=== PATIENT | male | born 1970 | race Caucasian/White ===

== ENCOUNTER → 2022-03-22 | Outpatient (CLI) | payer OTHER ==
--- NOTE | 2022-03-22 11:50 | US ---
EXAMINATION TYPE: US carotid duplex BILAT DATE OF EXAM: 03/22/2022 COMPARISON: NONE CLINICAL HISTORY: R42 DIZZINESS AND GIDDINESS. TECHNIQUE: Carotid duplex ultrasound examination. Indirect Doppler criteria was utilized. FINDINGS: EXAM MEASUREMENTS: RIGHT: Peak Systolic Velocity (PSV) cm/sec ----- Right CCA: 82.0 ----- Right ICA: 70.4 ----- Right ECA: 144.7 ICA/CCA ratio: 0.9 RIGHT: End Diastole cm/sec ----- Right CCA: 28.1 ----- Right ICA: 33.0 ----- Right ECA: 39.7 LEFT: Peak Systolic Velocity (PSV) cm/sec ----- Left CCA: 90.8 ----- Left ICA: 97.8 ----- Left ECA: 118.5 ICA/CCA ratio: 1.1 LEFT: End Diastole cm/sec ----- Left CCA: 27.0 ----- Left ICA: 48.7 ----- Left ECA: 32.3 VERTEBRALS (direction of flow): Right Vertebral: Antegrade Left Vertebral: Antegrade Rhythm: Normal Intimal thickening and some atheromatous plaquing is present. IMPRESSION: 1. No significant flow-limiting stenosis. 2. There may be some moderate narrowing of the right external carotid artery. Criteria for Assigning % of Stenosis / Diameter reduction (Estimation based on the indirect measurements of the internal carotid artery velocities (ICA PSV). 1. Normal (no stenosis)=ICA PSV < 125 cm/s: ratio < 2.0: ICA EDV<40 cm/s. 2. Less than 50% stenosis=ICA PSV < 125 cm/s: ratio < 2.0: ICA EDV<40 cm/s. 3. 50 to 69% stenosis=ICA PSV of 125 to 230 cm/s: ration 2.0 ? 4.0: ICA EDV 40-100 cm/s. 4. Greater than 70% stenosis to near occlusion= ICA PSV > 230 cm/s: ratio > 4.0: ICA EDV > 100 cm/s. 5. Near occlusion= ICA PSV velocities may be low or undetectable: variable ratio and ICA EDV. 6. Total occlusion=unable to detect flow.
== END | disposition home or self-care (01) ==
LOC: RADUSWWP 11:06
DX: R42 Dizziness and giddiness (principal)
CPT/HCPCS: 93880

== ENCOUNTER 2022-05-08 11:06 | Observation (INO) | payer OTHER ==
[2022-05-08] MEDS ORDERED: ASPIRIN 81 MG PO STA (11:39)
--- NOTE | 2022-05-08 12:01 | ED ---
Chest Pain [facility] - General Chief Complaint: Chest Pain Stated Complaint: chest pain Time Seen by Provider: 05/08/22 11:22 Source: patient, RN notes reviewed Mode of arrival: wheelchair Limitations: no limitations - History of Present Illness Initial Comments: 51-year-old male presents emergency Department chief complaint of chest pain. Patient states that the pain started a couple days ago but has worsened sharp left-sided chest pain. Patient does admit that he has hyperlipidemia denies any history of hypertension. Patient states that he did some diaphoretic episodes mild shortness of breath. Patient denies abdominal pain no back pain no other complaints. - Related Data Allergies Allergy/AdvReac Type Severity Reaction Status Date / Time No Known Allergies Allergy Verified 05/08/22 13:23 Review of Systems ROS Statement: Those systems with pertinent positive or pertinent negative responses have been documented in the HPI. ROS Other: All systems not noted in ROS Statement are negative. Past Medical History Past Medical History: Cancer, Hyperlipidemia, Thyroid Disorder History of Any Multi-Drug Resistant Organisms: None Reported Past Surgical History: No Surgical Hx Reported Past Psychological History: Anxiety, PTSD Smoking Status: Never smoker Past Alcohol Use History: Daily, Heavy Past Drug Use History: Marijuana General Exam General appearance: alert, in no apparent distress Head exam: Present: atraumatic, normocephalic, normal inspection Eye exam: Present: normal appearance, PERRL, EOMI. Absent: scleral icterus, conjunctival injection, periorbital swelling ENT exam: Present: normal exam, normal oropharynx, mucous membranes moist Neck exam: Present: normal inspection, full ROM. Absent: tenderness, meningismus, lymphadenopathy Respiratory exam: Present: normal lung sounds bilaterally. Absent: respiratory distress, wheezes, rales, rhonchi, stridor Cardiovascular Exam: Present: regular rate, normal rhythm, normal heart sounds. Absent: systolic murmur, diastolic murmur, rubs, gallop, clicks GI/Abdominal exam: Present: soft, normal bowel sounds. Absent: distended, tenderness, guarding, rebound, rigid Neurological exam: Present: alert Skin exam: Present: warm, dry, intact, normal color. Absent: rash Course Vital Signs 05/08/22 11:12 Temperature 98.2 F Pulse Rate 73 Respiratory 18 Rate Blood Pressure 144/91 O2 Sat by Pulse 98 Oximetry Chest Pain [facility] 51-year-old male presented from for left-sided chest pain. Initial workup including metastases EKG and chest x-ray did not reveal any acute findings. Patient does have multiple risk factors admitted for cardiac rule out and cardiology evaluation and echocardiogram. Disposition Clinical Impression: Chest pain Disposition: ADMITTED IP TO THIS HOSP Condition: Stable Referrals: [facility],Clinic [Primary Care Provider] - 1-2 days Time of Disposition: 13:30
[2022-05-08 12:09] LABS: Basophils # (A) 0.1 k/uL (0-0.2); Basophils % (A) 1 %; Eosinophils # (A) 0.2 k/uL (0-0.7); Eosinophils % (A) 3 %; HCT 44.2 % (39.0-53.0); HGB 14.5 gm/dL (13.0-17.5); Lymphocytes # (A) 1.1 k/uL (1.0-4.8); Lymphocytes % (A) 15 %; MCHC 32.9 g/dL (31.0-37.0); MCV 91.1 fL (80.0-100.0); Mean Platelet Volume 9.4; Monocytes # (A) 0.5 k/uL (0-1.0); Monocytes % (A) 6 %; Neutrophils # (A) 5.6 k/uL (1.3-7.7); Neutrophils % (A) 74 %; Platelet Count 137 k/uL (150-450); RBC 4.84 m/uL (4.30-5.90); RDW 12.8 % (11.5-15.5); WBC 7.6 k/uL (3.8-10.6)
[2022-05-08 12:17] LABS: ALT 48 U/L (4-49); AST 36 U/L (17-59); African American GFR (CKD) >90 (>60 ml/min/1.73 sqM); Albumin 4.6 g/dL (3.5-5.0); Alkaline Phosphatase 90 U/L (38-126); Anion Gap 14 mmol/L; Blood Urea Nitrogen 20 mg/dL (9-20); Calcium 9.7 mg/dL (8.4-10.2); Carbon Dioxide 20 mmol/L (22-30); Chloride 103 mmol/L (98-107); Glucose 121 mg/dL (74-99); Lipase 211 U/L (23-300); Magnesium 2.3 mg/dL (1.6-2.3); Non-African American GFR(CKD) >90 (>60 ml/min/1.73 sqM); Potassium 4.2 mmol/L (3.5-5.1); Sodium 137 mmol/L (137-145); Total Bilirubin 0.6 mg/dL (0.2-1.3); Total Protein 7.5 g/dL (6.3-8.2)
[2022-05-08 12:27] LABS: Partial Thromboplastin Time 25.4 sec (22.0-30.0); Prothrombin Time 10.6 sec (9.0-12.0)
--- NOTE | 2022-05-08 12:32 | XR ---
EXAMINATION TYPE: XR chest 2V DATE OF EXAM: 05/08/2022 COMPARISON: None HISTORY: 51-year-old male with chest pain TECHNIQUE: PA and lateral views FINDINGS: Minimal central peribronchial cuffing. Some radiopaque atelectasis in the lower lungs. Prominent epic ardial fat pad at the apex of the heart. No consolidation or pleural effusion. Heart normal size. IMPRESSION: Mild peribronchial cuffing could reflect bronchitis or asthma. Otherwise, no acute process seen.
[2022-05-08] MEDS ORDERED: NITROGLYCERIN SL TABS 0.4 MG TAB SUBLINGUAL PRN (13:30)
--- NOTE | 2022-05-08 17:59 | P.HPIM ---
History of Present Illness H&P Date: 05/08/22 History of Presenting Illness: Patient is a very pleasant 51-year-old male with a past medical history of hyperlipidemia, hypothyroidism, PTSD with anxiety and history of panic attacks, alcohol use, and marijuana use. Patient presented to the emergency department with a chief complaint of chest pain. Patient reports this began a couple days ago and is felt as a funny feeling to the left side of his chest accompanied by palpitations, nausea, shortness of breath, and diaphoresis. Patient states initially he thought maybe he was just having panic attack but then reports he started getting sharp sensations/pains in the left side of his chest that seemed to radiate towards his left shoulder which is completely atypical from his previous panic attacks. Patient stated this is when he became concerned and came to the emergency department for evaluation. He denies having any recent illnesses or exposure to known ill contacts, fevers, chills, headache, cough or congestion, abdominal pain, vomiting, or experiencing any numbness/tingling/weakness in his extremities. He underwent full evaluation in the emergency department CBC unremarkable with the exception of mild t hrombocytopenia with platelet count of 137, coags normal findings, and CMP also unremarkable. Troponin negative at less than 0.012. EKG revealing normal sinus rhythm at 66 bpm with no noted T-wave or ST abnormalities showing no signs of acute ischemia. Chest x-ray revealed mild peribronchial cuffing possibly secondary to bronchitis or asthma otherwise negative for acute cardiopulmonary process. Review of systems: Pertinent positives and negatives as discussed in HPI, a complete review of sy stems was performed and all other systems are negative. Physical exam: Vital signs reviewed and stable. General: Nontoxic, no distress and appears stated age. Derm: Skin warm and dry, normal coloration for ethnicity. Head: Atraumatic, normocephalic and symmetric. Eyes: EOMs intact, no lid lag, and anicteric sclera Mouth: no lip lesions, mucus membranes moist Cardiovascular: regular rate and rhythm with normal S1S2, no murmur, positive posterior tibial pulses bilaterally, and cap refill < 2 seconds. Lungs: Respirations even, regular, and unlabored on room air. Lungs CTA bilaterally, no rhonchi, no rales, no wheezing, and no accessory muscle usage. Abdominal: soft, nontender to palpation, no guarding, no appreciable organomegaly Ext: ROM intact. No gross muscle atrophy, no edema, no contractures Neuro: Speech clear, face symmetrical and CN II-XII grossly intact with no noted focal neuro deficits Psych: Alert and oriented to person, place, time, and situation. Appropriate and pleasant affect. Assessment and Plan of Care: Chest pain, rule out acute coronary event -Cardiology consult, appreciate further recommendations -Telemetry monitoring -Trend troponins -Cardiac diet, NPO at midnight -Aspirin and atorvastatin -Lipid profile with a.m. labs. -Echocardiogram Hypothyroidism -Continue daily medication regimen with levothyroxine. Hyperlipidemia -Continue daily medication regimen with atorvastatin. -Lipid profile with a.m. labs. The patient is admitted with an anticipated less than 2 midnight stay for evaluation of chest pain. CODE STATUS: Full code DVT prophylaxis: Heparin Discussed with: Patient, patient's , and RN Anticipated discharge date: 1-[address]: Home A total of 43 minutes was spent on the care of this complex patient more than 50% of the time was spent in counseling and care coordination. Past Medical History Past Medical History: Cancer, Hyperlipidemia, Thyroid Disorder History of Any Multi-Drug Resistant Organisms: None Reported Past Surgical History: No Surgical Hx Reported Past Psychological History: Anxiety, PTSD Smoking Status: Never smoker Past Alcohol Use History: Daily, Heavy Past Drug Use History: Marijuana Medications and Allergies Home Medications Medication Instructions Recorded Confirmed Type Alpha Brain 2 cap PO DAILY 05/08/22 05/08/22 History Atorvastatin [Lipitor] 20 mg PO HS 05/08/22 05/08/22 History Cyanocobalamin (Vitamin B-12) 1,000 mcg PO DAILY 05/08/22 05/08/22 History [Vitamin B-12] Fluticasone Nasal [place] [Flonase 2 spr EA NOSTRIL DAILY 05/08/22 05/08/22 History Nasal [place]] LORazepam [Ativan] 0.5 mg PO HS 05/08/22 05/08/22 History Levothyroxine Sodium [Synthroid] 125 mcg PO AC-BRKFST 05/08/22 05/08/22 History Magnesium Oxide [Mag-Ox] 400 mg PO HS 05/08/22 05/08/22 History Potassium Gluconate [Potassium 99 mg PO DAILY 05/08/22 05/08/22 History Gluconate ER] Allergies Allergy/AdvReac Type Severity Reaction Status Date / Time No Known Allergies Allergy Verified 05/08/22 13:23 Physical Exam Vitals: Vital Signs Temp Pulse Resp BP Pulse Ox 05/08/22 11:12 98.2 F 73 18 144/91 98 Intake and Output 05/07/22 05/08/22 05/08/22 22:59 06:59 14:59 Other: Weight 110.223 kg Results CBC & Chem 7: 05/08/22 11:51 05/08/22 11:51 Labs: Abnormal Lab Results - Last 24 Hours (Table) 05/08/22 05/08/22 Range/Units 11:51 11:51 Plt Count 137 L (150-450) k/uL Carbon Dioxide 20 L (22-30) mmol/L Glucose 121 H (74-99) mg/dL
[2022-05-08] MEDS ORDERED: ATORVASTATIN 20 MG TAB PO SCH (21:00)
[2022-05-08] MEDS ORDERED: MAGNESIUM OXIDE 400 MG TAB PO SCH (21:00)
[2022-05-08] MEDS ORDERED: LORazepam 0.5 MG TAB PO SCH (21:00)
[2022-05-08] MEDS: HEPARIN SODIUM,PORCINE/PF 5,000 UNIT/0.5 ML SYRINGE SQ SCH (23:44)
[2022-05-09] MEDS ORDERED: LEVOTHYROXINE 125 MCG TAB PO SCH (07:30)
[2022-05-09] MEDS ORDERED: POTASSIUM CHLORIDE ER 10 MEQ TAB.ER.PRT PO SCH (09:00)
[2022-05-09] MEDS ORDERED: ASPIRIN 325 MG TAB PO SCH (09:00)
[2022-05-09] MEDS ORDERED: CYANOCOBALAMIN 500 MCG TAB PO SCH (09:00)
[2022-05-09] MEDS ORDERED: ALPHA BRAIN PO SCH (09:00)
[2022-05-09] MEDS ORDERED: FLUTICASONE 50MCG/SPRAY NASAL 16GM EA NOSTRIL SCH (09:00)
[2022-05-09] MEDS ORDERED: ASPIRIN 81 MG PO SCH (09:00)
[2022-05-09 10:01] LABS: Chol/HDL Ratio 5.52 Ratio; LDL Cholesterol,Calculated 94.7 mg/dL (0.0-131.0)
--- NOTE | 2022-05-09 10:05 | P.CRDCN ---
History of Present Illness History of present illness: HISTORY OF PRESENT ILLNESS: This is a 51-year-old male with a past medical history significant for hyperlipidemia and anxiety. 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 We have been asked to see the patient in consultation for chest pain. Patient examined at the bedside. Patient states he began having chest pain on Sunday. He states the pain was a sharp pain in the middle of his chest into his left shoulder. He reports feeling short of breath and having some shallow breathing. He reports palpitations. He states the pain would last for a few minutes and then go away. He states the pain was nonexertional. He thought at first it was anxiety but the pain persisted so he decided to come to the emergency room for further evaluation. He reports a family history of heart disease in his dad and his grandmother. The patient is a nonsmoker. * EKG reveals sinus mechanism with no signs of acute ischemia * Chest xray mild peribronchial cuffing could reflect bronchitis or asthma. Otherwise no acute process seen. * Laboratory data: WBC 7.6. Hemoglobin 14.5. Platelet count 137. Sodium 137. Potassium 4.2. BUN 20. Creatinine 0.88. Magnesium 2.3. Troponin negative 3. * Current home cardiac medications include Lipitor 20 mg at night REVIEW OF SYSTEMS: At the time of my exam: CONSTITUTIONAL: Denies fever or chills. HEENT: Denies blurred vision, vision changes, or eye pain. Denies hemoptysis CARDIOVASCULAR: Denies chest pain. Denies orthopnea. Denies PND. Denies palpitations RESPIRATORY: Denies shortness of breath. GASTROINTESTINAL: Denies abdominal pain. Denies nausea or vomiting. HEMATOLOGIC: Denies bleeding disorders. GENITOURINARY: Denies any blood in urine. SKIN: Denies pruitis. Denies rash. PHYSICAL EXAM: VITAL SIGNS: Reviewed. GENERAL: Well-developed in no acute distress. HEENT: Head is normocephalic. Pupils are equal, round. Sclerae anicteric. Mucous membranes of the mouth are moist. Neck supple. No JVD or thyromegaly LUNGS: Respirations even and unlabored. Lungs essentially clear to auscultation bilaterally. HEART: Regular rate and rhythm. S1 and S2 heard. ABDOMEN: Soft. Nondistended. Nontender. EXTREMITIES: Normal range of motion. No clubbing or cyanosis. Peripheral pulses intact. No lower extremity edema NEUROLOGIC: Awake and alert. Oriented x 3. ASSESSMENT: Chest pain, troponins negative 3 Hyperlipidemia Anxiety PLAN: An acute coronary and has been ruled out Resume home cardiac medications Obtain 2-D echo to assess cardiac structure and function Patient to undergo stress testing today. If negative, the patient may be discharged home from a cardiac standpoint Further recommendations pending patient's course Nurse practitioner note has been reviewed by physician. Signing provider agrees with the documented findings, assessment, and plan of care. Past Medical History Past Medical History: Cancer, Hyperlipidemia, Thyroid Disorder History of Any Multi-Drug Resistant Organisms: None Reported Past Surgical History: No Surgical Hx Reported Past Psychological History: Anxiety, PTSD Smoking Status: Never smoker Past Alcohol Use History: Daily, Heavy Past Drug Use History: Marijuana Medications and Allergies Home Medications Medication Instructions Recorded Confirmed Type Alpha Brain 2 cap PO DAILY 05/08/22 05/08/22 History Atorvastatin [Lipitor] 20 mg PO HS 05/08/22 05/08/22 History Cyanocobalamin (Vitamin B-12) 1,000 mcg PO DAILY 05/08/22 05/08/22 History [Vitamin B-12] Fluticasone Nasal [place] [Flonase 2 spr EA NOSTRIL DAILY 05/08/22 05/08/22 History Nasal [place]] LORazepam [Ativan] 0.5 mg PO HS 05/08/22 05/08/22 History Levothyroxine Sodium [Synthroid] 125 mcg PO AC-BRKFST 05/08/22 05/08/22 History Magnesium Oxide [Mag-Ox] 400 mg PO HS 05/08/22 05/08/22 History Potassium Gluconate [Potassium 99 mg PO DAILY 05/08/22 05/08/22 History Gluconate ER] Allergies Allergy/AdvReac Type Severity Reaction Status Date / Time No Known Allergies Allergy Verified 05/08/22 13:23 Physical Exam Vitals: Vital Signs Temp Pulse Pulse Resp BP BP BP 05/09/22 07:00 97.8 F 54 L 15 106/64 05/09/22 03:53 97.7 F 56 L 17 119/78 05/09/22 01:25 69 18 05/08/22 20:00 74 18 05/08/22 19:34 97.9 F 74 18 124/83 05/08/22 17:18 98.2 F 76 19 112/67 05/08/22 16:00 81 18 136/71 05/08/22 11:12 98.2 F 73 18 144/91 Pulse Ox 05/09/22 07:00 96 05/09/22 03:53 99 05/09/22 01:25 05/08/22 20:00 05/08/22 19:34 97 05/08/22 17:18 97 05/08/22 16:00 99 05/08/22 11:12 98 Intake and Output 05/08/22 05/09/22 05/09/22 22:59 06:59 14:59 Intake Total 500 Balance 500 Intake: Oral 500 Other: Voiding Method Toilet Toilet # Voids 1 Weight 110.223 kg Results 05/08/22 11:51 05/08/22 11:51 Cardiac Enzymes 05/08/22 05/08/22 05/08/22 Range/Units 11:51 11:51 14:36 AST 36 (17-59) U/L Troponin I <0.012 <0.012 (0.000-0.034) ng/mL 05/08/22 Range/Units 17:45 AST (17-59) U/L Troponin I <0.012 (0.000-0.034) ng/mL Coagulation 05/08/22 Range/Units 11:51 PT 10.6 (9.0-12.0) sec APTT 25.4 (22.0-30.0) sec CBC 05/08/22 Range/Units 11:51 WBC 7.6 (3.8-10.6) k/uL RBC 4.84 (4.30-5.90) m/uL Hgb 14.5 (13.0-17.5) gm/dL Hct 44.2 (39.0-53.0) % Plt Count 137 L (150-450) k/uL Comprehensive Metabolic Panel 05/08/22 Range/Units 11:51 Sodium 137 (137-145) mmol/L Potassium 4.2 (3.5-5.1) mmol/L Chloride 103 (98-107) mmol/L Carbon Dioxide 20 L (22-30) mmol/L BUN 20 (9-20) mg/dL Creatinine 0.88 (0.66-1.25) mg/dL Glucose 121 H (74-99) mg/dL Calcium 9.7 (8.4-10.2) mg/dL AST 36 (17-59) U/L ALT 48 (4-49) U/L Alkaline Phosphatase 90 (38-126) U/L Total Protein 7.5 (6.3-8.2) g/dL Albumin 4.6 (3.5-5.0) g/dL Current Medications Generic Name Dose Route Start Last Admin Trade Name Freq PRN Reason Stop Dose Admin Aspirin 325 mg 05/09/22 09:00 Aspirin 325 Mg Tab PO DAILY [facility] Atorvastatin Calcium 20 mg 05/08/22 21:00 05/08/22 21:46 Atorvastatin 20 Mg Tab PO 20 mg HS KAT Administration Cyanocobalamin 1,000 mcg 05/09/22 09:00 Cyanocobalamin 500 Mcg Tab PO DAILY KAT Fluticasone Propionate 2 spray 05/09/22 09:00 Fluticasone 50mcg/[place] Nasal 16gm EA NOSTRIL DAILY KAT Heparin Sodium (Porcine) 5,000 unit 05/09/22 00:00 05/08/22 23:44 Heparin Sodium,Porcine/Pf 5,000 Unit/0.5 Ml Syringe SQ 5,000 unit Q8HR KAT Administration Levothyroxine Sodium 125 mcg 05/09/22 07:30 Levothyroxine 125 Mcg Tab PO AC-BRKFST KAT Lorazepam 0.5 mg 05/08/22 21:00 05/08/22 21:46 Lorazepam 0.5 Mg Tab PO 0.5 mg HS KAT Administration Magnesium Oxide 400 mg 05/08/22 21:00 05/08/22 21:46 Magnesium Oxide 400 Mg Tab PO 400 mg HS KAT Administration Nitroglycerin 0.4 mg 05/08/22 13:30 Nitroglycerin Sl Tabs 0.4 Mg Tab SUBLINGUAL Q5M PRN Chest Pain Potassium Chloride 10 meq 05/09/22 09:00 Potassium Chloride Er 10 Meq Tab.Er.Prt PO DAILY KAT Intake and Output 05/08/22 05/09/22 05/09/22 22:59 06:59 14:59 Intake Total 500 Balance 500 Intake: Oral 500 Other: Voiding Method Toilet Toilet # Voids 1 Weight 110.223 kg 05/08/22 11:51 05/08/22 11:51
[2022-05-09] MEDS: HEPARIN SODIUM,PORCINE/PF 5,000 UNIT/0.5 ML SYRINGE SQ SCH (10:09)
--- NOTE | 2022-05-09 14:32 | P.DS ---
Providers Date of admission: 05/08/22 13:30 Expected date of discharge: 05/09/22 Attending physician: Teddy Krishnamurthy MD Primary care physician: [facility] Course: Discharge Diagnosis: Chest pain, acute coronary event ruled out. Hypothyroidism. Continue daily medication regimen with levothyroxine. Hyperlipidemia. Continue daily medication regimen with atorvastatin. Patient was also started on fenofibrate in addition to daily atorvastatin secondary to elevated triglyceride levels of 333. Hospital Course: Patient is a very pleasant 51-year-old male with a past medical history of hyperlipidemia, hypothyroidism, PTSD with anxiety and history of panic attacks, alcohol use, and marijuana use. Patient presented to the emergency department with a chief complaint of chest pain. Patient reports this began a couple days ago and is felt as a funny feeling to the left side of his chest accompanied by palpitations, nausea, shortness of breath, and diaphoresis. Patient states initially he thought maybe he was just having panic attack but then reports he started getting sharp sensations/pains in the left side of his chest that seemed to radiate towards his left shoulder which is completely atypical from his previous panic attacks. Patient stated this is when he became concerned and came to the emergency department for evaluation. He denies having any recent illnesses or exposure to known ill contacts, fevers, chills, headache, cough or congestion, abdominal pain, vomiting, or experiencing any numbness/tingling/weakness in his extremities. He underwent full evaluation in the emergency department CBC unremarkable with the exception of mild thrombocytopenia with platelet count of 137, coags normal findings, and CMP also unremarkable. Troponin negative at less than 0.012. EKG revealing normal sinus rhythm at 66 bpm with no noted T-wave or ST abnormalities showing no signs of acute ischemia. Chest x-ray revealed mild peribronchial cuffing possibly secondary to bronchitis or asthma otherwise negative for acute cardiopulmonary process. Patient was admitted under our services with consultation to cardiology. patient reported resolution of previously noted chest pain.troponins were trended overnight all negative at less than 0.0123 draws. patient was evaluated by cardiology and underwent an echocardiogram and echo stress test. Per cardiology these findings were negative and normal findings and patient was cleared from cardiac perspective at this time and recommended to follow-up outpatient in our office in 1 week to discuss results. Patient is medically stable for discharge home at this time. Discussed discharge with patient and patient's and patient to follow up outpatient with PCP in 1-2 days and with filler blender in 1 week. Patient was also started on fenofibrate in addition to daily atorvastatin secondary to elevated triglyceride levels of 333. Physical exam: Vital signs reviewed and stable. General: Nontoxic, no distress and appears stated age. Derm: Skin warm and dry, normal coloration for ethnicity. Head: Atraumatic, normocephalic and symmetric. Eyes: EOMs intact, no lid lag, and anicteric sclera Mouth: no lip lesions, mucus membranes moist Cardiovascular: regular rate and rhythm with normal S1S2, no murmur, positive posterior tibial pulses bilaterally, and cap refill < 2 seconds. Lungs: Respirations even, regular, and unlabored on room air. Lungs CTA bilaterally, no rhonchi, no rales, no wheezing, and no accessory muscle usage. Abdominal: soft, nontender to palpation, no guarding, no appreciable organomegaly Ext: ROM intact. No gross muscle atrophy, no edema, no contractures Neuro: Speech clear, face symmetrical and CN II-XII grossly intact with no noted focal neuro deficits Psych: Alert and oriented to person, place, time, and situation. Appropriate and pleasant affect. A total of 31 minutes of time were spent preparing this complex discharge summary. Pt was discharged on 05/09/22 at 2:30 PM. I reviewed the documentation as provided by the ROSEMARIE above, who is the original author of this note. I agree with the documented assessment and plan, with the following changes: none Patient Condition at Discharge: Stable Plan - Discharge Summary New Discharge Prescriptions: New Fenofibrate 150 mg PO DAILY 30 Days #30 capsule Continue Fluticasone Nasal [place] [Flonase Nasal [place]] 2 spr EA NOSTRIL DAILY Levothyroxine Sodium [Synthroid] 125 mcg PO AC-BRKFST Potassium Gluconate [Potassium Gluconate ER] 99 mg PO DAILY Magnesium Oxide [Mag-Ox] 400 mg PO HS Cyanocobalamin (Vitamin B-12) [Vitamin B-12] 1,000 mcg PO DAILY Alpha Brain 2 cap PO DAILY Atorvastatin [Lipitor] 20 mg PO HS LORazepam [Ativan] 0.5 mg PO HS Discharge Medication List Alpha Brain 2 cap PO DAILY 05/08/22 [History] Atorvastatin [Lipitor] 20 mg PO HS 05/08/22 [History] Cyanocobalamin (Vitamin B-12) [Vitamin B-12] 1,000 mcg PO DAILY 05/08/22 [History] Fluticasone Nasal [place] [Flonase Nasal [place]] 2 spr EA NOSTRIL DAILY 05/08/22 [History] LORazepam [Ativan] 0.5 mg PO HS 05/08/22 [History] Levothyroxine Sodium [Synthroid] 125 mcg PO AC-BRKFST 05/08/22 [History] Magnesium Oxide [Mag-Ox] 400 mg PO HS 05/08/22 [History] Potassium Gluconate [Potassium Gluconate ER] 99 mg PO DAILY 05/08/22 [History] Fenofibrate 150 mg PO DAILY 30 Days #30 capsule 05/09/22 [Rx] Follow up Appointment(s)/Referral(s): Cory Salguero MD [STAFF PHYSICIAN] - 1 Week [facility]inic [Primary Care Provider] - 1-2 days Patient Instructions/Handouts: Chest Pain (DC), Hyperlipidemia (DC) Activity/Diet/Wound Care/Special Instructions: Activity: As tolerated. Take breaks as needed. Diet: Heart healthy and carb consistent diet. Avoid salts, or foods with hidden salts such as canned or boxed foods and frozen dinners. Extra salt makes your heart work harder and traps the fluid in your body for longer. Special Instructions: Take all of your medications as directed and remember to keep all of your doctor's appointments and follow-up as needed. Thank you for allowing us to participate in your care, it is always great to have the opportunity to provide care to a and it was truly a pleasure having you for our patient!!! Discharge Disposition: HOME SELF-CARE
[2022-05-09 15:04] VITALS: BP 110/72; PULSE 69; RESP 18; TEMP 97.8
--- NOTE | 2022-05-10 07:44 | CA ---
Transthoracic Echo Report Name: Oracio Han Age: 51 Gender: M : 1970 Exam Date: 05/09/2022 08:02 Exam Location: [facility] Ht (in): 62 Wt (lb): 243 Ordering Physician: Renny Garner Attending/Referring Phys: [id number], Patsy Alteration Worker Deb Paula, CHRIS Procedure CPT: Indications: Chest Pain Cardiac Hx: Technical Quality: Contrast 1: Total Dose (mL): Contrast 2: Total Dose (mL): MEASUREMENTS (Male / Female) Normal Values 2D ECHO LV Diastolic Diameter PLAX 4.9 cm 4.2 - 5.9 / 3.9 - 5.3 cm LV Systolic Diameter PLAX 4.1 cm IVS Diastolic Thickness 1.3 cm 0.6 - 1.0 / 0.6 - 0.9 cm LVPW Diastolic Thickness 1.5 cm 0.6 - 1.0 / 0.6 - 0.9 cm LV Relative Wall Thickness 0.6 LA Systolic Diameter LX 3.7 cm 3.0 - 4.0 / 2.7 - 3.8 cm LA Volume 58.8 cm??? 18 - 58 / 22 - 52 cm??? M-MODE Aortic Root Diameter MM 3.3 cm LA Systolic Diameter MM 3.6 cm LA Ao Ratio MM 1.1 MV E Point Septal Separation 1.2 cm AV Cusp Separation MM 1.9 cm DOPPLER MV Area PHT 3.1 cm??? Mitral E Point Velocity 72.2 cm/s Mitral A Point Velocity 56.2 cm/s Mitral E to A Ratio 1.3 MV Deceleration Time 244.5 ms MV E' Velocity 6.4 cm/s Mitral E to MV E' Ratio 11.4 FINDINGS Left Ventricle Normal left ventricular size, wall thickness, systolic function with no obvious regional wall motion abnormalities. The ejection fraction is visually estimated at 50-55 %. Right Ventricle The right ventricle is normal in size and function. Right Atrium The right atrium is normal in size. Left Atrium The left atrium is normal in size. Mitral Valve Structurally normal mitral valve without significant stenosis or prolapse. There is trace mitral regurgitation. Aortic Valve Structurally normal aortic valve without significant sclerosis or stenosis. There is no aortic regurgitation. Tricuspid Valve Structurally normal tricuspid valve without significant stenosis. Pulmonary artery systolic pressure is normal. Pulmonic Valve Structurally normal pulmonic valve without significant stenosis. There is no pulmonic regurgitation. Pericardium Normal pericardium without effusion. Aorta Normal aortic root dimension. CONCLUSIONS Normal left ventricular dimension and systolic function Normal intracardiac valves Previewed by: Dr. Cory Salguero MD (Electronically Signed) Final Date: 10 May 2022 07:43
== END 2022-05-09 15:11 | disposition home or self-care (01) ==
LOC: EC 11:06 → 6NMEDSUR 13:30
PROVIDERS: ADMIT Internal Medicine; ATTEND Internal Medicine
DX: R07.89 Other chest pain (principal); E78.5 Hyperlipidemia, unspecified; F41.9 Anxiety disorder, unspecified; E78.1 Pure hyperglyceridemia; D69.6 Thrombocytopenia, unspecified; R00.2 Palpitations; R11.0 Nausea; R06.02 Shortness of breath; R61 Generalized hyperhidrosis; E03.9 Hypothyroidism, unspecified; F41.0 Panic disorder [episodic paroxysmal anxiety]; F43.10 Post-traumatic stress disorder, unspecified; Z79.890 Hormone replacement therapy; Z79.899 Other long term (current) drug therapy; Z82.49 Family history of ischemic heart disease and other diseases of the circulatory system
CPT/HCPCS: 96372; 99285; 36415; 93005; 93017; 93306; 80061; 80053; 83690; 83735; 84484; 85025; 85610; 85730; 71046; G0378 ×2; J1644

== ENCOUNTER → 2023-11-15 | Outpatient (CLI) | payer OTHER ==
--- NOTE | 2023-11-15 09:04 | US ---
EXAMINATION TYPE: US scrotum with doppler. Grayscale and color Doppler Duplex imaging performed of t he scrotum. DATE OF EXAM: 11/15/2023 COMPARISON: NONE CLINICAL INDICATION: Male, 53 years old with history of N50.819 TESTICULAR PAIN, UNSPECIFIED; bilat t esticular pain x 3 weeks EXAM MEASUREMENTS: TESTICLES: Right Testicle: 4.4x2.3x2.8 cm Left Testicle: 4.4x2.5x2.6 cm EPIDIDYMIS HEAD: Right Epididymis: 1.2 cm Left Epididymis: 0.9 cm Doppler performed to assess for testicular vascularity; good bilateral color flow and waveforms are s een. There is no evidence of testicular torsion. Presence of hydroceles: no Presence of varicoceles: no There is a 0.2x0.2x0.3cm cystic area at the left epi head There is also a 0.7x0.4x0.6cm isoechoic area at the inferior/anterior midline area of the left testic le IMPRESSION: 1. Left epididymal head cyst. 2. Nonspecific isoechoic focus inferior and anterior midline area of left testicle is nonspecific. Co rrelate clinically. Short-term follow-up is recommended in 2-3 months.
== END | disposition home or self-care (01) ==
LOC: RADUSWWP 07:56
PROVIDERS: ATTEND Family Medicine
DX: N50.3 Cyst of epididymis (principal); N50.811 Right testicular pain; N50.812 Left testicular pain
CPT/HCPCS: 76870; 93975

== ENCOUNTER → 2024-01-16 | Outpatient (CLI) | payer OTHER ==
--- NOTE | 2024-01-16 16:31 | US ---
EXAMINATION TYPE: US scrotum with doppler. Grayscale and color Doppler Duplex imaging performed of t quinten scrotum. 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 Tubular ectasia within the epididym is EPIDIDYMIS HEAD: Right Epididymis: 1.6 cm, tubular ectasia within the epididymis Left Epididymis: 1.1 cm - small cyst = 0.3 x 0.2cm Doppler performed to assess for testicular vascularity; good bilateral color flow and waveforms are s een. There is no evidence of testicular torsion. Presence of hydroceles: no Presence of varicoceles: left side IMPRESSION: * Stable nonspecific extratesticular lesion inferior and anterior midline area of left testicle is n onspecific. Findings not significantly changed in size compared to 11/15/2023. This appears adjacent to the testis. * No evidence for testicular torsion. All
== END | disposition home or self-care (01) ==
LOC: RADUSWWP 15:24
PROVIDERS: ATTEND Urology
DX: N50.89 Other specified disorders of the male genital organs (principal); D29.20 Benign neoplasm of unspecified testis
CPT/HCPCS: 76870; 93975